=== PATIENT | female | born 1995 ===

== ENCOUNTER 2018-11-07 14:24 | Emergency (ER) | payer BC, OTHER ==
[2018-11-07 15:18] VITALS: BP 116/76
--- NOTE | 2018-11-07 15:47 | UC ---
Complaint Female HPI - History Of Current Complaint Chief Complaint: [facility] Stated Complaint: URINARY Time Seen by Provider: 11/07/18 15:10 Hx Obtained From: Patient Hx Last Menstrual Period: Q3mo ?: No - control using Pain Intensity: 2 Pain Scale Used: 0-10 Numeric Aggravating Factor(s): Nothing Alleviating Factor(s): Nothing - Allergies/Home Medications Allergies/Adverse Reactions: Allergies Allergy/AdvReac Type Severity Reaction Status Date / Time seasonal allergies Allergy Runny Nose Uncoded 11/07/18 15:18 Home Medications: Home Medications Amantadine CAP* [Symmetrel CAP*] 100 mg PO DAILY 11/07/18 [History Confirmed 10/14] Medical Marijuana Oil 11/07/18 [History] Norethindr/Eth Estradiol(Nf) [Lo Loestrin Fe (NF)] 1 tab PO 11/07/18 [History] Propranolol TAB* [Inderal TAB*] 60 mg PO DAILY 11/07/18 [History Confirmed 11/07] Topiramate [Topiramate ER 50 mg cap] 50 mg PO 11/07/18 [History] PMH/Surg Hx/FS Hx/Imm Hx Previously Healthy: Yes - Surgical History Surgical History: Yes Surgery Procedure, Year, and Place: tonsils at age 5yrs - Social History Alcohol Use: Rare Substance Use Type: None Smoking Status (MU): Never Smoked Tobacco - Immunization History Vaccination Up to Date: Yes Review of Systems All Other Systems Reviewed And Are Negative: Yes Constitutional: Positive: Negative. Negative: Fever Respiratory: Positive: Negative Cardiovascular: Positive: Negative Gastrointestinal: Positive: Abdominal Pain - R side but resolved. Genitourinary: Positive: Dysuria, Hematuria, Frequency, Urgency. Negative: Vaginal/Penile Burning, Vaginal/Penile Discharge, Vaginal/Penile Pain, Vaginal/ Penile Tenderness Physical Exam Triage Information Reviewed: Yes Appearance: Well-Appearing Vital Signs: Initial Vital Signs Temp 98.5 F 11/07/18 15:15 Pulse 91 11/07/18 15:15 Resp 18 11/07/18 15:15 BP 116/76 11/07/18 15:15 Pulse Ox 100 11/07/18 15:15 Vital Signs Reviewed: Yes Respiratory Exam: Normal Cardiovascular Exam: Normal Abdomen Description: Positive: Nontender, Soft. Negative: CVA Tenderness (R), CVA Tenderness (L) Pelvic Exam: Positive: Other - declined Neurological: Positive: Alert Complaint Female Dx - Course Course Of Treatment: Acute dysuria, afebrile w/ UA showing +leuks. Will send for culture. We are sending pt's gc/chlam as well. urine hcg neg. will tx empirically for uti given s/sx. - Differential Dx/Diagnosis Differential Diagnosis/HQI/PQRI: , Sexually Transmitted Disease, Urinary Tract Infection Provider Diagnosis: Dysuria Discharge - Sign-Out/Discharge Documenting (check all that apply): Patient Departure All imaging exams completed and their final reports reviewed: No Studies - Discharge Plan Condition: Good Disposition: HOME Prescriptions: Sulfamethox/Trimethoprim DS* [Bactrim DS 800/160 TAB*] 1 tab PO BID 3 Days #6 tab Patient Education Materials: Dysuria (ED) Referrals: Zabrina Ng PA [Primary Care Provider] - Additional Instructions: follow up with your pcp if symptoms persist. - Billing Disposition and Condition Condition: GOOD Disposition: Home - Attestation Statements Provider Attestation: I was available for consult. This patient was seen by the POON[facility]. The patient was not presented to, seen by, or examined by me. EK
[2018-11-09 14:07] LABS: Neisseria gonorrhoeae (GC) RNA Negative (Negative)
== END 2018-11-07 16:03 | disposition home or self-care (01) ==
LOC: UCCORT 14:24
DX: R30.0 Dysuria (principal)
CPT/HCPCS: 81003; 84702; 87086; 87491; 87591; 99212; G0463